=== PATIENT | male | born 1955 | race Caucasian/White ===

== ENCOUNTER 2019-11-06 10:43 | Emergency (ER) | payer SELFPAY ==
[2019-11-06 10:50] VITALS: BP 174/93; PULSE 61; RESP 16; TEMP 36.6; O2SAT 98
--- NOTE | 2019-11-06 11:43 | ED.NECK ---
HPI - Neck Pain/Injury General Chief Complaint: Neck Pain/Injury Stated Complaint: NECK PAIN, NUMBNESS IN ARM Time Seen by Provider: 11/06/19 11:11 Source: patient Mode of arrival: ambulatory Limitations: no limitations History of Present Illness HPI Narrative: This is a 64 year old male that presents to the ER for right sided tingling x 2 days. 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 Reports since then he has been having some neck pain. Reports on he was working on lights all day in the ceiling and had to look up the whole time. Reports this has caused some neck stiffness. Reports since he has been having some intermittent tingling in his right arm as well. Also reports this in the right leg. Denies vision changes, vomiting, numbness or weakness. Review of Systems Review of Systems: Narrative: CONSTITUTIONAL: Denies fever EYES: Denies visual changes GASTROINTESTINAL: Denies vomiting SKIN: Denies rash MUSCULOSKELETAL: Reports joint pain, and myalgia. NEUROLOGIC: Denies headache, numbness, or weakness. All systems reviewed & are unremarkable except as noted in HPI and below PMFSH Surgical History Surgical History (Updated 11/06/19 @ 11:49 by Chey Wilkerson PA-C) History of inguinal hernia repair Social History Social History (Updated 11/06/19 @ 11:49 by Chey Wilkerson PA-C) Smoking status: Never smoker Substance use: never Exam Narrative: Exam Narrative: GENERAL: Well-appearing, well-nourished, and in no acute distress. HEAD: Normocephalic, atraumatic. EYES: PERRLA and EOMI. ENT: Nares clear, no rhinorrhea or epistaxis. Mucous membranes moist. Oropharynx without tonsillar hypertrophy exudate or other lesions. Bilateral TMs pearly sen non-bulging NECK: Supple. No adenopathy or masses. No midline spinal tenderness CHEST: Clear to auscultation. No respiratory distress. No wheezes rales or rhonchi HEART: Regular rate and rhythm. No murmur heard. Normal peripheral pulses. EXTREMITIES: Normal range of motion. No edema. Strength equal in bilateral upper and lower extremities (5/5) SKIN: Warm, dry, no rash. NEURO: No focal deficits. Alert and oriented x3. Cranial nerves II through XII grossly intact. Normal gait PSYCH: Normal mood and affect Course Vital Signs Vital signs: Vital Signs Temperature 97.9 F 11/06/19 10:50 Pulse Rate 61 11/06/19 10:50 Respiratory Rate 16 11/06/19 10:50 Blood Pressure 174/93 H 11/06/19 10:50 Pulse Oximetry 98 11/06/19 10:50 Temperature 97.9 F 11/06/19 10:50 Pulse Rate 61 11/06/19 10:50 Respiratory Rate 16 11/06/19 10:50 Blood Pressure 174/93 H 11/06/19 10:50 Pulse Oximetry 98 11/06/19 10:50 MDM - Neck Pain/Injury MDM Narrative Medical decision making narrative: Patient presents the emergency department for neck pain. 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 Since he had had some neck stiffness. Was also reporting some tingling in his right arm. Reported some intermittent tingling in the right leg as well. Patient had no neurologic deficits on exam. I did speak with patient about wanting to get further labs and imaging to be able to further evaluate him. He refused as he does not have insurance and does not want to have to pay for a large bill. Patient will be signing out AMA. Made him aware of risks of doing so, such as permanent neurologic damage. Patient was told to return at any time for further evaluation. He was encouraged to follow up with his PCP Critical Care Time Critical Care Time Critical Care Time: No Discharge Plan Discharge Clinical Impression: Acute neck pain, Paresthesias Patient Disposition: Left Against Medical Advice Condition: Guarded Prognosis Instructions: Paresthesia (ED), Neck Pain (ED) Additional Instructions: Return to the emergency department at any time for further evaluation Follow-
== END 2019-11-06 12:25 | disposition left against medical advice (07) ==
PROVIDERS: Emergency Provider Emergency Medicine; PCP Family Medicine Adolescent Medicine
DX: R20.2 Paresthesia of skin (principal); M54.2 Cervicalgia
CPT/HCPCS: 99281

== ENCOUNTER 2020-07-03 13:19 | Inpatient (IN) | payer SELFPAY ==
[2020-07-03] VITALS (16 sets, daily range): BP systolic 62–126; BP diastolic 42–78; PULSE 63–102; RESP 14–23; TEMP 36.7; O2SAT 94–100; BMI 29.6
--- NOTE | ~2020-07-03 | US_ITS ---
EXAMINATION: US renal BI DATE: 07/04/2020 15:59 INDICATION: Acute kidney injury. TECHNIQUE: Multiple ultrasound grayscale images of the kidneys were obtained. COMPARISON: CT abdomen and pelvis 07/03/2020 FINDINGS: The right kidney measures 11.3 x 4.9 x 5.6 cm. The left kidney measures 11.2 x 5.3 x 6.2 cm. The kidn eys demonstrate normal parenchymal echogenicity. There is a poorly defined mass in the left kidney. T here is no hydronephrosis. The bladder is normal. The prostate is mildly enlarged. IMPRESSION: 1. Poorly defined mass in left kidney better seen by on yesterday's CT measuring 4.3 cm suspicious fo r renal cell carcinoma. Abdomen CT without and with contrast is recommended after improvement in acut e renal failure. I called this result to Shira Bonilla. 2. Normal kidney sizes. No hydronephrosis. Reviewed, dictated and finalized at location A. Y FARMWORKER IMPRESSION: 1. Poorly defined mass in left kidney better seen by on yesterday's CT measurin g 4.3 cm suspicious for renal cell carcinoma. Abdomen CT without and with contr ast is recommended after improvement in acute renal failure. I called this resu lt to Shira Bonilla. 2. Normal kidney sizes. No hydronephrosis.
--- NOTE | ~2020-07-03 | XR_ITS ---
EXAMINATION: XR chest 1V portable EXAM DATE: 07/03/2020 14:17 INDICATION: Syncope. TECHNIQUE: Portable AP frontal chest x-ray was obtained. There is no prior study for comparison. FINDINGS: The lungs are clear. There are no pleural effusions. The cardiomediastinal silhouette is within normal limits. There is no pneumothorax suspected. The bones and soft tissues are unremarkab le. IMPRESSION: No acute cardiopulmonary findings. Reviewed, dictated and finalized at location B. OR SALES ASSISTANT
--- NOTE | ~2020-07-03 | XR_ITS ---
EXAMINATION: XR chest port-a-cath/central EXAM DATE: 07/03/2020 15:20 INDICATION: Central line placement. TECHNIQUE: Portable AP frontal chest x-ray was obtained. There is no prior study for comparison. FINDINGS: There is a right IJ venous line, tip projecting over cavoatrial junction. No evidence of po stprocedure pneumothorax. No focal airspace disease or pleural effusion. Cardiomediastinal silhouette is normal. There are no osseous abnormalities identified. IMPRESSION: No acute cardiopulmonary findings. Reviewed, dictated and finalized at location B. RY WORKER
--- NOTE | ~2020-07-03 | CT_ITS ---
EXAMINATION: CT abdomen pelvis wo con DATE: 07/03/2020 15:56 INDICATION: Vomiting, diarrhea and hypotension TECHNIQUE: Computed tomography (CT) of the abdomen and pelvis was performed without intravenous contr ast. The dose-length product was 1072.27 mGy-cm. Automated exposure control and iterative reconstruct ion technique were employed. COMPARISON: None. FINDINGS: Bibasilar dependent atelectasis. Heart size is normal. Small hiatal hernia. There is fluid throughout the small bowel and colon without focal bowel wall abnormalities. Colonic diverticulosis w ithout evidence for diverticulitis. No free air or free fluid. No significant vascular abnormality. S mall fat-containing left inguinal hernia. No free air or free fluid. Gallbladder is present. There ar e low-density lesions in the left hepatic lobe, largest measuring 1.5 cm, compatible with a cyst. The other lesions are too small to characterize. The spleen, pancreas, adrenal glands and right kidney a re unremarkable. There is a 2 cm left renal cyst. There is a 2-3 mm nonobstructing right renal stone. There is moderate lumbar spondylosis. There is scoliosis. IMPRESSION: 1. Moderate fluid throughout the small bowel and colon without focal obstruction, suspicious for ente rocolitis. 2: Nonobstructing right nephrolithiasis. 3: Small hiatal hernia and left inguinal hernias. Reviewed, dictated and finalized at location A. DIRECTOR IMPRESSION: 1. Moderate fluid throughout the small bowel and colon without focal obstructio n, suspicious for enterocolitis. 2: Nonobstructing right nephrolithiasis. 3: Small hiatal hernia and left inguinal hernias.
--- NOTE | ~2020-07-03 | CT_ITS ---
EXAMINATION: CT brain wo con EXAM DATE: 07/04/2020 13:01 INDICATION: Fall, right frontal head injury. History of stroke. TECHNIQUE: Spiral CT of the head was performed without contrast. Axial, coronal and sagittal images were reviewed. The dose-length product (DLP) for this examination was 605.33 mGy-cm. The exposure w as tailored according to patient size, and iterative reconstruction (ASIR) was used as additional dos e reduction technique. There is no prior study for comparison. FINDINGS: There is no acute intraparenchymal hemorrhage. No evidence of intraparenchymal brain mass lesion. No evidence of acute infarction. There is no mass effect or midline shift. The ventricles are normal in size. There are no extra-axial collections. There are no acute calvarial fractures. T he orbits are unremarkable. Soft tissue is unremarkable. The visualized sinuses and mastoid air bri ls are well aerated. IMPRESSION: 1. No acute intracranial findings. Reviewed, dictated and finalized at location B. R RELATIONS REPRESENTATIVE
--- NOTE | ~2020-07-03 | XR_ITS ---
EXAMINATION: XR abdomen/kub 1V DATE: 07/05/2020 13:20 INDICATION: Right renal stone. TECHNIQUE: A supine view of the abdomen on 2 radiographs was obtained. COMPARISON: CT abdomen and pelvis 07/03/2020 FINDINGS: There are no dilated loops of bowel. There is a small volume of stool in the colon. There i s no visible urolithiasis. IMPRESSION: 1. No visible urolithiasis. Reviewed, dictated and finalized at location A. NING PERSONNEL SUPERVISOR IMPRESSION: 1. No visible urolithiasis.
--- NOTE | ~2020-07-03 | CT_ITS ---
EXAMINATION: CT abdomen pelvis wo/w con DATE: 07/05/2020 13:49 INDICATION: Left kidney mass. TECHNIQUE: Computed tomography (CT) of the abdomen and pelvis was performed without and with 100 mL O mnipaque 350 intravenous contrast. Automated exposure control and iterative reconstruction technique were employed. The dose-length product was 1634.51 mGy-cm. COMPARISON: CT abdomen and pelvis 07/03/2020 FINDINGS: The visualized portions of the lung bases demonstrate minimal atelectasis. No pleural effus ion. The heart size is normal. No pericardial effusion. There are cysts in the liver measuring up to 15 mm. The gallbladder, spleen, pancreas, and adrenal glands are normal. There is a 7 mm cyst in righ t kidney. There is a 1 mm stone in right kidney. There is a 5.0 x 3.3 cm enhancing mass in left kidne y. There are cysts in left kidney measuring up to 4 mm. There is a small area of focal left kidney vo lume loss in the upper pole. The prostate is mildly enlarged. There are bilateral inguinal hernias co ntaining fat. There is diverticulosis of the colon without evidence of diverticulitis. The appendix i s normal. There are no pathologically enlarged lymph nodes. There is no free intraperitoneal fluid. T here is lumbar levoscoliosis and severe spondylosis. IMPRESSION: 1. 5.0 cm enhancing mass in left kidney, consistent with renal cell carcinoma. Reviewed, dictated and finalized at location A. L FINISHER
--- NOTE | 2020-07-03 13:24 | ECG_ITS ---
Measurements Intervals [place] Rate: 75 P: 61 ID: [id number] QRS: 8 QRSD: 99 T: 32 QT: 391 QTc: 438 Interpretive Statements SINUS RHYTHM EARLY PRECORDIAL R/S TRANSITION INFERIOR INFARCT, AGE INDETERMINATE ABNORMAL ECG Electronically Signed On 07-03-2020 14:04:54 RESIDENTIAL MORTGAGE MANAGER by Martín Singh D.O.
--- NOTE | 2020-07-03 13:31 | PC.NURSE ---
BS 126
[2020-07-03] MEDS: SODIUM CHLORIDE 0.9% IV 2,000 ML 999 ML (13:32)
--- NOTE | 2020-07-03 13:32 | ED.NAVMDI ---
HPI - Nausea/Vomiting/Diarrhea General Chief complaint: Nausea/Vomiting/Diarrhea Stated complaint: weakness/hypotensive Time Seen by Provider: 07/03/20 13:21 History of Present Illness HPI Narrative: 65 yo male w/ h/o htn, CVA brought in by EMS from home for syncope. He reportedly had multiple episodes of watery diarrhea starting at about 0130 this morning. Since that time he has had multiple syncopal episodes. He was hypotensive per EMS and fluids were started. On arrival here he continues to be hypotensive. He had an additional syncopal episode when the head of the bed was raised. No dark or bloody stools. No CP, SOB, palpitations, fever. Related Data Home Medications Medication Instructions Recorded Confirmed aspirin 325 mg PO DAILY 07/03/20 07/03/20 atorvastatin 40 mg PO DAILY 07/03/20 07/03/20 hydrochlorothiazide 25 mg PO DAILY 07/03/20 07/03/20 lisinopril 20 mg PO BID 07/03/20 07/03/20 saw palmetto 450 mg PO BID 07/03/20 07/03/20 Allergies Allergy/AdvReac Type Severity Reaction Status Date / Time No Known Allergies Allergy Verified 07/03/20 13:31 Review of Systems Review of Systems: All systems reviewed & are unremarkable except as noted in HPI and below Constitutional: Constitutional: Reports fatigue, Denies fever(s) and Reports weakness ENT: Denies sore throat Cardiovascular: Cardiovascular: Denies chest pain Respiratory: Respiratory: Denies dyspnea Gastrointestinal: Gastrointestinal: Denies abdominal pain, Reports diarrhea, Reports nausea and Reports vomiting Genitourinary: Genitourinary: Denies hematuria and Denies dysuria Musculoskeletal: Musculoskeletal: Denies back pain Neurologic: Denies confusion and Reports syncope [facility] Past Medical History Medical History CVA (cerebral vascular accident) HTN (hypertension) Surgical History Surgical History History of inguinal hernia repair Social History Social History Smoking status: Never smoker Second hand tobacco smoke exposure: No Substance use: never Substance use type: does not use Gender identity (if verbalized by the patient): Male Spiritual care concerns: No Exam Const: General: no acute distress, alert and ill appearing Orientation/consciousness: patient oriented x3 HENMT: Mouth: Yes dry mucous membranes Eyes: Pupils: Equal, round and reactive pupils present EOM: EOMs intact bilaterally Neck: Neck: normal visual inspection Resp: Effort & Inspection: normal respiratory effort Auscultation: clear to auscultation bilaterally Cardio: Rate: regular rate Rhythm: regular rhythm GI: GI Palp: Yes Soft to palpation and No Tenderness to palpation present (GI) Skin: General skin exam: normal color and no pallor Neuro: General: patient oriented x3, moves all extremities, no focal motor deficits and CN's II-XI intact bilaterally Speech: normal speech Extrem: General: normal to inspection and no edema Course Vital Signs Vital signs: Vital Signs Temperature 36.7 C 07/03/20 13:25 Pulse Rate 66 07/03/20 13:25 Respiratory Rate 15 07/03/20 13:25 Blood Pressure 62/42 L 07/03/20 13:25 Pulse Oximetry 99 07/03/20 13:25 Temperature 36.7 C 07/03/20 13:25 Pulse Rate 99 07/03/20 18:13 Respiratory Rate 20 07/03/20 18:13 Blood Pressure 101/65 07/03/20 18:13 Pulse Oximetry 96 07/03/20 18:13 Procedures Central Line Placement Right IJ: Central Line Date: 07/03/20 Central Line Time: 15:06 Discussed w/ the patient/family/POA,the placement of a central venous catheter, including its clinical necessity/indication & associated potential risks, benifits and alternatives.: Yes The patient/family/POA understand(s) and acknowledge(s) the need to proceed with central venous catheter insertion as an important
[2020-07-03 13:35] LABS: Glucose Point of Care 126 (65-105)
--- NOTE | 2020-07-03 13:45 | PC.NURSE ---
3 L INFUSING AT THIS TIME, EDP AT BEDSIDE GAVE VORB. L/R INFUSED, 2 N/S INFUSING AT BOLUS RATE.
[2020-07-03 13:46] LABS: Basophils Absolute Auto 0.1 K/mm3 (0.0-0.1); Basophils Percent Auto 0.4 % (0.2-1.2); Eosinophils Percent Auto 0.1 % (0-4.4); Hemoglobin 14.6 g/dL (14.0-18.0); Immature Granulocyte Absolute 0.07 K/mm3 (0.00-0.031); Immature Granulocyte Percent A 0.5 % (0-0.5); Lymphocytes Percent Auto 7.7 % (18.3-44.2); Mean Corpuscular HGB Conc 33.2 g/dl (32-36); Mean Corpuscular Hemoglobin 30.5 pg (26-34); Mean Corpuscular Volume 91.9 fl (80-100); Monocytes Absolute Auto 0.8 K/mm3 (0.1-0.6); Monocytes Percent Auto 6.1 % (2.6-8.5); Neutrophils Absolute Auto 11.1 K/mm3 (1.3-6.7); Neutrophils Percent Auto 85.2 % (45.5-73.1); Platelet Count Result 344 k/mm3 (150-375); Red Blood Count 4.79 M/mm3 (4.6-6.20); Red Cell Distribution Width 12.5 % (11.5-14.5); White Blood Count 13.1 K/mm3 (4.5-10.0)
--- NOTE | 2020-07-03 13:55 | PC.NURSE ---
PT UNABLE TO PROVIDE U/A AT THIS TIME, DECLINED STRAIGHT CATH. FLUIDS INFUSING, GIVEN URINAL.
[2020-07-03 13:56] LABS: Lactic Acid Reflex 2.8 mmol/L (0.7-2.1)
[2020-07-03 13:57] LABS: Prothrombin Time 13.8 Seconds (11.1-14.7)
[2020-07-03 13:57] LABS: Alanine Aminotransferase 49 U/L (4-50); Albumin Level 3.6 g/dL (3.5-5.1); Alkaline Phosphatase 64 U/L (38-126); Anion Gap 10 mmol/L (8-16); Aspartate Amino Transferase 27 U/L (17-59); Bilirubin,Total 0.5 mg/dL (0.2-1.3); Blood Urea Nitrogen 33 mg/dL (9-20); Calcium 9.3 mg/dL (8.4-10.2); Carbon Dioxide 24 mmol/L (22-30); Chloride 104 mmol/L (98-107); Estimated CRCL calculation 24 ml/min; Estimated Glomerular Filt Rate 20; Glucose 151 mg/dL (75-110); Lipase 39 U/L (23-300); Potassium 3.9 mmol/L (3.4-5.0); Sodium 138 mmol/L (137-145)
[2020-07-03 13:59] LABS: Partial Thromboplastin Time 26.3 SECONDS (22.3-36.8)
[2020-07-03 14:09] LABS: Troponin I < 0.012 ng/mL (0.000-0.034)
--- NOTE | 2020-07-03 14:57 | PC.NURSE ---
EDP DR GATICA AT BEDSIDE TO PLACE CENTRAL LINE. PT ON TELE MONITOR.
[2020-07-03] MEDS: NOREPINEPHRINE 8 MG/D5W 250 ML 8 MG/250 ML BAG 9.38 MG IV CONT (15:14)
[2020-07-03 15:17] LABS: Add Urine Microscopic? YES; Appearance Urine Turbid (Clear); Bacteria Urine Trace /hpf; Bilirubin Urine Negative (Negative); Blood Urine 1+ (Negative); Color Urine Amber (Yellow); Glucose Urine UA Negative (Negative); Ketones Urine Trace mg/dL (Negative); Leukocyte Esterase Ur Negative LEU/UL (Negative); Mucus Urine Rare /lpf; Nitrate Urine Negative (Negative); Protein Urine 3+ mg/dL (Negative); RBC Urine 0-2 /hpf (0-2); Specific Grav Ur 1.022 (1.001-1.035); Squamous Epithelial Cell Urine Rare /hpf (Few); Urobilinogen Urine Negative mg/dL (<2.0); WBC Urine 0-3 /hpf
[2020-07-03] MEDS: SODIUM CHLORIDE 0.9% IV 1,000 ML 999 ML IV CONT (15:20)
--- NOTE | 2020-07-03 15:28 | PC.NURSE ---
Per EDP Dr Metzger, titrate Levophed to 15MCG.
[2020-07-03] MEDS: SODIUM CHLORIDE 0.9% IV 1,000 ML 999 ML (15:29)
--- NOTE | 2020-07-03 15:47 | PC.NURSE ---
PT TO CT SCAN VIA STRETCHER
[2020-07-03] MEDS: VANCOMYCIN ORAL 125 MG/2.5 ML SYRUP PO ×2 (16:25→23:43)
[2020-07-03 16:43] LABS: Reflex Lactic Acid Yes or No Add Lactic
[2020-07-03 17:29] LABS: Lactic Acid 1.1 mmol/L (0.7-2.1)
--- NOTE | 2020-07-03 18:22 | ADMGEN ---
This patient, Christ Bolton, was admitted to Intensive Care Unit-2. Patient/family oriented to hospital policies and general routines including ID bracelet, bed and alarms, visiting hours, pain management, procedures, bathroom and other care routines, personal items, smoking policy, room service/diet, and visiting hours. Information on how to activate the Rapid Response Team has been discussed. Patient/Family are encouraged to report perceived risks to care and to ask questions if they do not understand what they are told or what they should do.
--- NOTE | 2020-07-03 20:01 | PM.IMHP ---
H&P: HPI History of Present Illness Date/Time: 07/03/20 20:01 Chief Complaint: Syncopal episode with hypotension Narrative: Christ Bolton is a 65 year old male who has a past medical history of having a CVA, hypertension and hyperlipidemia. The patient has some residual weakness to his right hand and difficulty with balance at times. Patient has regained strength to his right leg and his speech as well since his stroke this past October. The patient has been on hydrochlorothiazide and lisinopril for his blood pressure. The patient woke up with some abdominal cramping at 1:30 a.m. this morning when he started having diarrhea. He denies being on any recent antibiotics. He has not had any code exposure. He has not had any fever chills. He has not been around any sick contacts. The patient stated that he feels like he has had several syncopal episodes today. The patient became hypotensive but had no additional syncopal episodes when the head of bed was raise. No chest pain, shortness of breath or palpitations. White count is 13.1. His creatinine was noted to be 3.2. The patient did take his home medications although he was having multiple watery stools today. His lactic initially was 2.8 and then it went down to 1.1. Glucose is 126. Chest x-ray was negative.CT was read as moderate fluid throughout the small bowel and colon without focal obstruction, suspicious for enterocolitis. Nonobstructing right nephrolithiasis. Small hiatal hernia and left inguinal hernias. Patient was given the 30 mils per kg IV boluses in the emergency room and the patient continued to have low blood pressures. Was 62/42. A central line was placed and the patient was placed on on Levophed. The patient did have a watery diarrhea stool in the emergency room. The patient stated he has not had 1 since then. The patient was started on Zosyn and oral vancomycin. The patient is complaining of feeling hungry and is requesting a sandwich at this time. Patient is being admitted to inpatient ICU on the date of service of 07/03/2020. Review of Systems Review of Systems: All systems reviewed & are unremarkable except as noted in HPI and below Constitutional: Constitutional: Reports as per HPI and Reports no additional constitutional complaints Eyes: Eyes: Reports as per HPI and Reports no additional eye complaints ENT: Reports system reviewed and no additional complaints, except as documented and Reports Normal hearing present Cardiovascular: Cardiovascular: Reports no additional cardiovascular complaints Respiratory: Respiratory: Reports no additional respiratory complaints and Reports no additional respiratory complaints Gastrointestinal: Gastrointestinal: Reports as per HPI and Reports no additional gastrointestinal complaints Musculoskeletal: Musculoskeletal: Reports no additional musculoskeletal complaints Integumentary/Breasts: Skin/Breast: Reports system reviewed and no additional complaints, except as docu and Reports as per HPI Neurologic: Reports system reviewed and no additional complaints, except as documented, Reports as per HPI and Reports Normal hearing present Psychiatric: Psychiatric: Reports no additional psychiatric complaints and Reports as per HPI Endocrine: Endocrine: Reports no additional endocrine complaints Hematologic/Lymphatic: Hematologic/Lymphatic: Reports no additional hematologic/lymphatic complaints Allergic/Immunologic: Allergic/Immunologic: Reports no additional allergic/immunologic complaints [facility] Past Medical History Medical History (Updated 07/03/20 @ 20:34 by Padmini Richards NP) CVA (cerebral vascular accident) Right side residual with ambulatory difficulty HTN (hypertension) Hyperlipidemia Surgical History Surgical History (Updated 07/03/20 @ 20:13 by Padmini Richards NP) History of bunionectomy History of inguinal hernia repair Social History Social History (Updated 07/03/20 @ 20:21 by Padmini Richards NP)
[2020-07-03] MEDS: SODIUM CHLORIDE 0.9% IV 1,000 ML 100 ML (20:12)
[2020-07-03] MEDS: SODIUM CHLORIDE 0.9% IV 250 ML 100 ML IV CONT (20:25)
[2020-07-03 21:09] LABS: Anion Gap 8 mmol/L (8-16); Blood Urea Nitrogen 36 mg/dL (9-20); Calcium 8.3 mg/dL (8.4-10.2); Carbon Dioxide 21 mmol/L (22-30); Chloride 106 mmol/L (98-107); Estimated CRCL calculation 24 ml/min; Estimated Glomerular Filt Rate 20; Glucose 188 mg/dL (75-110); Potassium 3.9 mmol/L (3.4-5.0); Sodium 135 mmol/L (137-145)
[2020-07-03] MEDS: CALCIUM CARBONATE (TUMS) 500 MG (200 MG ELEMENTAL) PO (22:18)
[2020-07-04] VITALS (22 sets, daily range): BP systolic 104–140; BP diastolic 57–87; PULSE 60–663; RESP 14–20; TEMP 36.1–36.9; O2SAT 94–99
[2020-07-04] MEDS: NOREPINEPHRINE 8 MG/D5W 250 ML 8 MG/250 ML BAG 9.38 MG IV CONT (02:40)
[2020-07-04 03:51] LABS: Basophils Percent Auto 0.4 % (0.2-1.2); Eosinophils Percent Auto 0.4 % (0-4.4); Hematocrit 38.2 % (42.0-52.0); Immature Granulocyte Absolute 0.05 K/mm3 (0.00-0.031); Immature Granulocyte Percent A 0.5 % (0-0.5); Lymphocytes Absolute Auto 1.46 K/mm3 (0.9-3.2); Lymphocytes Percent Auto 14.6 % (18.3-44.2); Mean Corpuscular Hemoglobin 30.7 pg (26-34); Mean Corpuscular Volume 90.3 fl (80-100); Mean Platelet Volume 9.3 fl (7.4-10.4); Monocytes Absolute Auto 0.9 K/mm3 (0.1-0.6); Neutrophils Absolute Auto 7.5 K/mm3 (1.3-6.7); Neutrophils Percent Auto 75.1 % (45.5-73.1); Platelet Count Result 262 k/mm3 (150-375); Red Blood Count 4.23 M/mm3 (4.6-6.20); Red Cell Distribution Width 12.5 % (11.5-14.5)
[2020-07-04 04:04] LABS: IFOB Positive Control Positive; Immunochemical Fecal Occult Bl Negative (N)
[2020-07-04 04:11] LABS: Alanine Aminotransferase 37 U/L (4-50); Albumin Level 2.9 g/dL (3.5-5.1); Alkaline Phosphatase 54 U/L (38-126); Anion Gap 6 mmol/L (8-16); Aspartate Amino Transferase 24 U/L (17-59); Bilirubin,Total 0.6 mg/dL (0.2-1.3); Blood Urea Nitrogen 35 mg/dL (9-20); CRP 4.4 mg/dL (<1.0); Calcium 8.2 mg/dL (8.4-10.2); Carbon Dioxide 23 mmol/L (22-30); Chloride 108 mmol/L (98-107); Estimated CRCL calculation 28 ml/min; Estimated Glomerular Filt Rate 24; Glucose 125 mg/dL (75-110); Magnesium 1.7 mg/dL (1.6-2.3); Phosphorus 4.6 mg/dL (2.5-4.5); Potassium 3.4 mmol/L (3.4-5.0); Sodium 137 mmol/L (137-145)
[2020-07-04 04:45] LABS: Thyroid Stimulating Hormone Reflex 0.555 uIU/mL (0.465-4.68)
[2020-07-04] MEDS: VANCOMYCIN ORAL 125 MG/2.5 ML SYRUP PO ×4 (06:12→23:59)
[2020-07-04] MEDS: MAGNESIUM SULF 2 GM/WATER 50ML 2 GM/50 ML BAG IVPB (07:42)
[2020-07-04] MEDS: CALCIUM CARBONATE (TUMS) 500 MG (200 MG ELEMENTAL) PO (07:44)
[2020-07-04] MEDS: FAMOTIDINE 20 MG/2 ML VIAL IV PUSH ×2 (08:04→20:48)
[2020-07-04] MEDS: ATORVASTATIN 40 MG TABLET PO (08:04)
--- NOTE | 2020-07-04 09:03 | WPDCNINT ---
Assessment and Plan Assessment and plan (1) Septic shock: Code(s): A41.9 - Sepsis, unspecified organism; R65.21 - Severe sepsis with septic shock Status: Acute Assessment and Plan: Shock likely related to hypovolemia, sepsis/infection. Patient had severe diarrhea, nausea, vomiting, dehydration and above all any did take his lisinopril and hydrochlorothiazide on the day of admission -likely source abdomen -enterocolitis a seen on CT scan of the abdomen and pelvis -patient received his adequate amount of IV fluids despite which he was hypotensive, central line was inserted and patient started on Levophed -Levophed is currently off -continue Zosyn and vancomycin, will deescalate once cultures are resulted -stool cultures have been obtained and pending (2) Enterocolitis: Code(s): K52.9 - Noninfective gastroenteritis and colitis, unspecified Status: Acute Assessment and Plan: CT scan of the abdomen and pelvis showed enterocolitis -patient presented with severe diarrhea, dehydration, hypovolemia -continue antibiotics (3) Acute kidney injury: Code(s): N17.9 - Acute kidney failure, unspecified Status: Acute Assessment and Plan: Acute kidney injury likely related to hypovolemia, sepsis, infection, shock, lisinopril and diuretic -patient adequately fluid-resuscitated -urine output has been adequate -creatinine trending down -continue monitor renal function, electrolytes -will hold IV fluids Additional Plan Discussed with patient updated with his condition and plan of care. Code status: Full code Critical care time spent: 39 minutes Due to a high probability of clinically significant, life threatening deterioration, the patient required my highest level of preparedness to intervene emergently and I personally spent this critical care time directly and personally managing the patient. This critical care time included obtaining a history; examining the patient; pulse oximetry; ordering and review of studies; arranging urgent treatment with development of a management plan; evaluation of patient's response to treatment; frequent reassessment; and discussions with other providers. It was exclusive of separately billable procedures and treating other patients and teaching time. Please see Assessment and Plan section and the rest of the note for further information on patient assessment and treatment Vamp Presser Consult Note Consult date: 07/04/20 Time Seen: 06:51 Reason for consult: Hypovolemia, shock, diarrhea, enterocolitis HPI: Christ Bolton is a 65 year old male with past medical history of CVA, essential hypertension hyperlipidemia presented the ED diarrhea, vomiting with abdominal cramping that began on the morning of admission. Patient had having perfuse and multiple episodes of diarrhea. States he had some breakfast on 07/02/2020 and the very next morning he developed cramping diarrhea and vomiting. Patient also took his hydrochlorothiazide and lisinopril felt dizzy and lightheaded had syncopal episode on the day of admission. In the ER patient was found to be hypotensive, in renal failure. Patient was given 30 mL/kg of IV fluid bolus despite which she was hypotensive, central line was inserted and patient started on Levophed and transferred to the ICU for further management. CT scan of the abdomen pelvis showed moderate fluid throughout the small bowel and colon without fecal obstruction, suspicious for enterocolitis. Lactic acid was 2.8 on admission, 1.1 after IV fluids. Patient seen and examined the ICU this morning, remains awake, alert sitting up on the chair, has been off Levophed. Denies any nausea, vomiting, diarrhea. He had a small movement this morning. Patient is afebrile, urine output has been adequate. Creatinine trending down, leukocytosis has normalized. Patient states that he has had a history of CVA with some right-sided weakness difficulty with balance. He uses a cane at
--- NOTE | 2020-07-04 15:44 | PM.IMPN ---
Progress Note: A&P Assessment and Plan (1) Acute kidney injury: Code(s): N17.9 - Acute kidney failure, unspecified Status: Acute Assessment and Plan: Likely pr renal azotemia Will obtain renal US Daily BMP Avoid nephrotoxins Patient on HCTZ hence urine lytes of less value, currently holding. Patient also on Lisinopril at home currently holding (2) HTN (hypertension): Code(s): I10 - Essential (primary) hypertension Status: Chronic Assessment and Plan: Currently off vasopressor due to hypotension. Holding Lisinopril and HCTZ. (3) Enterocolitis: Code(s): K52.9 - Noninfective gastroenteritis and colitis, unspecified Status: Acute (4) Septic shock: Code(s): A41.9 - Sepsis, unspecified organism; R65.21 - Severe sepsis with septic shock Status: Acute Assessment and Plan: Likely component of hypovolemia due to profuse diarrhea. Received broad spectrum antibiotics No bandemia/Left shift Currently on po Vanc Continue to monitor (5) Enteritis: Code(s): K52.9 - Noninfective gastroenteritis and colitis, unspecified Status: Acute Assessment and Plan: Supportive care Continue to monitor Awaiting stool studies Subjective Date/time seen: 07/04/20 15:44 States that feels better today. No new issues overnight. Review of Systems Review of Systems: Narrative: Denies any discomfort at this time. Constitutional: Comments: no fevers, no chills, no rigors. Eyes: Comments: no vision changes. ENT: Comments: no nasal congestion, no throat pain, no ear ache. Cardiovascular: Comments: no chest pain. Respiratory: Comments: no sob, no cough, no sputum production. Gastrointestinal: Comments: Diarrhea for several days now. Musculoskeletal: Comments: no muscle aches, no joint pain. Integumentary/Breasts: Comments: no rashes. Neurologic: Comments: no sensory motor deficit. Exam Narrative: Exam Narrative: Lying in bed Const: General: comfortable, no acute distress, alert, awake, Physically active and tired appearing Nutritional Appearance: average body habitus Orientation/consciousness: patient oriented x3 Limitations: no limitations HENMT: Head: normocephalic Face and sinus: normal facial exam Eyes: General: appearance normal, both eyes and all related structures Pupils: Equal, round and reactive pupils present EOM: EOMs intact bilaterally Neck: Neck: no lymphadenopathy, supple and no JVD Resp: Effort & Inspection: able to speak in complete sentences Auscultation: clear to auscultation bilaterally GI: GI Palp: Yes Soft to palpation and Yes No hepatosplenomegaly present Skin: Rashes: no rashes Wounds: no wounds Neuro: General: patient oriented x3 and CN's II-XI intact bilaterally Cranial nerves: Yes CN's II-XII intact bilaterally and Yes Equal, round and reactive pupils present Cognition (Neuro): normal cognition Motor exam (neuro): 5/5 motor strength present throughout Extrem: General: no pedal edema Objective Data Vital Signs Vital Signs: Vital Signs - 24 hr 07/03/20 16:13 07/03/20 17:16 07/03/20 18:00 Temperature Pulse Rate 85 102 H 96 Respiratory Rate 14 22 H 16 Blood Pressure 117/78 97/58 L 104/68 Pulse Oximetry 98 96 97 07/03/20 18:13 07/03/20 20:00 07/03/20 22:00 Temperature Pulse Rate 99 87 86 Respiratory Rate 20 19 23 H Blood Pressure 101/65 106/60 121/77 Pulse Oximetry 96 96 98 07/03/20 23:42 07/04/20 00:00 07/04/20 00:08 Temperature Pulse Rate 86 85 83 Respiratory Rate 18 Blood Pressure 126/74 120/80 131/77 Pulse Oximetry 96 07/04/20 00:30 07/04/20 01:39 07/04/20 02:00 Temperature 98.3 F Pulse Rate 112 H Respiratory Rate 17 Blood Pressure 128/79 104/77 Pulse Oximetry 94 07/04/20 02:35 07/04/20 02:40 07/04/20 03:06 Temperature Pulse Rate 111 H Respiratory Rate Blood Pressure 116/85 116/85 140/87 Pulse Oximetry 07/04/20 03:34 07/04
[2020-07-04 16:19] LABS: Creatine Kinase 299 U/L (55-170)
--- NOTE | 2020-07-04 19:05 | PC.NURSE ---
pt transferred to room 246 via bed, placed on telemetry per MD orders, oriented to new room by night staff, reviewed plan of care, pt resting comfortably
--- NOTE | 2020-07-04 19:10 | PC.NURSE ---
This patient, Christ Bolton, was transferred to room 246 on 07/04/20 at 1910. Personal belongings sent with patient. Report given to RN. Appropriate documentation sent with patient.
[2020-07-05] VITALS (7 sets, daily range): BP systolic 108–137; BP diastolic 68–72; PULSE 58–84; RESP 18–20; TEMP 36.3–36.7; O2SAT 96–98
[2020-07-05] MEDS: VANCOMYCIN ORAL 125 MG/2.5 ML SYRUP PO ×2 (05:26→11:30)
[2020-07-05 05:34] LABS: Basophils Percent Auto 0.5 % (0.2-1.2); Eosinophils Absolute Auto 0.2 K/mm3 (0-0.3); Eosinophils Percent Auto 2.6 % (0-4.4); Hematocrit 35.3 % (42.0-52.0); Hemoglobin 11.7 g/dL (14.0-18.0); Immature Granulocyte Absolute 0.02 K/mm3 (0.00-0.031); Immature Granulocyte Percent A 0.3 % (0-0.5); Lymphocytes Absolute Auto 1.78 K/mm3 (0.9-3.2); Mean Corpuscular HGB Conc 33.1 g/dl (32-36); Mean Corpuscular Hemoglobin 30.5 pg (26-34); Mean Corpuscular Volume 92.2 fl (80-100); Mean Platelet Volume 9.5 fl (7.4-10.4); Monocytes Absolute Auto 0.6 K/mm3 (0.1-0.6); Monocytes Percent Auto 8.3 % (2.6-8.5); Neutrophils Absolute Auto 5.1 K/mm3 (1.3-6.7); Neutrophils Percent Auto 65.3 % (45.5-73.1); Platelet Count Result 231 k/mm3 (150-375); Red Blood Count 3.83 M/mm3 (4.6-6.20); Red Cell Distribution Width 12.6 % (11.5-14.5); White Blood Count 7.7 K/mm3 (4.5-10.0)
[2020-07-05 05:45] LABS: Anion Gap 4 mmol/L (8-16); Blood Urea Nitrogen 27 mg/dL (9-20); Calcium 8.2 mg/dL (8.4-10.2); Carbon Dioxide 26 mmol/L (22-30); Chloride 111 mmol/L (98-107); Estimated CRCL calculation 41 ml/min; Estimated Glomerular Filt Rate 38; Glucose 100 mg/dL (75-110); Magnesium 2.4 mg/dL (1.6-2.3); Phosphorus 3.1 mg/dL (2.5-4.5); Sodium 141 mmol/L (137-145)
[2020-07-05] MEDS: CENTRAL LINE FLUSH 20 ML IV PUSH (06:03)
[2020-07-05] MEDS: CENTRAL LINE FLUSH 10 ML IV PUSH (06:03)
[2020-07-05] MEDS: ASPIRIN 81 MG CHEWABLE TABLET 162 MG PO (08:29)
[2020-07-05] MEDS: ATORVASTATIN 40 MG TABLET PO (08:29)
[2020-07-05] MEDS: FAMOTIDINE 20 MG/2 ML VIAL IV PUSH (08:29)
[2020-07-05] MEDS: NEOMYCIN/POLYMYXIN/BACITRACIN OINTMENT PACKET 1 PACKET (11:31)
[2020-07-05] MEDS: LORATADINE 5 MG TABLET PO (15:04)
--- NOTE | 2020-07-05 15:36 | WPDURCON ---
Assessment and Plan Assessment and plan (1) Renal mass: Code(s): N28.89 - Other specified disorders of kidney and ureter Status: Acute Assessment and Plan: Ok to discharge at anytime. Will follow up with Dr. Joseph for further evaluation and management. No further evaluation at this time. (2) Right kidney stone: Code(s): N20.0 - Calculus of kidney Status: Acute Assessment and Plan: Not visible on KUB. Will watch yearly. No surgical management. Urology Consult Note HPI Date Seen: 07/05/20 Requesting Physician: Lino Kent MD Primary Care Provider: Haresh Toney MD Consult Narrative Narrative: Christ Bolton is a 65 year old male who presented to the ER on 07/03/2020 with diarrhea, and multiple syncopal episodes extending into the ER as well as hypotension. He came via EMS called by his and has a history of CVA. His WBC is 7.7, creatinine is 1.80 down from 3.10 on admission, his urine culture was negative. CT scan of abdomen and pelvis shows a non obstructive stone measuring 2-3mm and a 2cm left renal cyst which appears to also have a solid component and is potentially part of a mass. A JASON was then done to further identify the mass and states it is poorly identified but likely Renal Cell Carcinoma. A CT Urogram was then ordered and it identifies the mass as a 5.0 cm enhancing mass in left kidney, consistent with renal cell carcinoma. The patient denies flank pain, dysuria, hematuria, or any previous urologic history. Review of Systems Cardiovascular: Cardiovascular: Denies chest pain Respiratory: Respiratory: Reports no additional respiratory complaints Gastrointestinal: Gastrointestinal: Denies abdominal pain, Denies nausea and Denies vomiting Genitourinary: Genitourinary: Denies hematuria, Denies dysuria, Denies flank pain and Denies urinary urgency [facility] Past Medical History Medical History CVA (cerebral vascular accident) Right side residual with ambulatory difficulty HTN (hypertension) Hyperlipidemia Surgical History Surgical History History of bunionectomy History of inguinal hernia repair Social History Social History Social History: He lives with his who is the durable power molder trimmer for healthcare. 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 No alcohol use. Patient stated that he smoked as a teenager till he was 22. The patient does not use any marijuana or illicit drugs. He has 2 children. The patient is a full code. Smoking status: Never smoker Second hand tobacco smoke exposure: No Substance use: never Substance use type: does not use Gender identity (if verbalized by the patient): Male Spiritual care concerns: No Meds Home Medications and Allergies Home Medications Medication Instructions Recorded Confirmed Type aspirin 325 mg PO DAILY 07/03/20 07/03/20 History atorvastatin 40 mg PO DAILY 07/03/20 07/03/20 History hydrochlorothiazide 25 mg PO DAILY 07/03/20 07/03/20 History lisinopril 20 mg PO BID 07/03/20 07/03/20 History saw palmetto 450 mg PO BID 07/03/20 07/03/20 History Allergies Allergy/AdvReac Type Severity Reaction Status Date / Time No Known Allergies Allergy Verified 07/03/20 13:31 Vital Signs Vital Signs - 24 hr 07/04/20 17:45 07/04/20 20:00 07/04/20 22:00 Temperature 98.4 F 97.4 F L 97 F L Pulse Rate 75 663 H 64 Respiratory Rate 20 20 20 Blood Pressure 109/72 108/65 108/65 Pulse Oximetry 97 99 99 07/05/20 00:00 07/05/20 02:00 07/05/20 04:00 Temperature 97.3 F L 97.5 F L 97.7 F Pulse Rate 62 77 64 Respiratory Rate 18 20 18 Blood Pressure 116/72 108/68 131/68 Pulse Oximetry 96 96 97 07/05/20 06:00 07/05/20 08:00
--- NOTE | 2020-07-05 16:36 | PM.DS ---
DS: Admitting Diagnosis Admitting Diagnosis Admitting Diagnosis: 1) Septic shock: (2) Acute kidney injury: . (3) Enterocolitis: (4) HTN (hypertension): (5) Hyperlipidemia: DS: Summary Hospital Course Reason for hospitalization: Fall Hospital Course: Christ Bolton is a 65 year old male who has a past medical history of having a CVA, hypertension and hyperlipidemia. The patient has some residual weakness to his right hand and difficulty with balance at times. Patient has regained strength to his right leg and his speech as well since his stroke this past October. The patient has been on hydrochlorothiazide and lisinopril for his blood pressure. The patient woke up with some abdominal cramping at 1:30 a.m. this morning when he started having diarrhea. He denies being on any recent antibiotics. He has not had any code exposure. He has not had any fever chills. He has not been around any sick contacts. The patient stated that he feels like he has had several syncopal episodes today. The patient became hypotensive but had no additional syncopal episodes when the head of bed was raise. No chest pain, shortness of breath or palpitations. White count is 13.1. His creatinine was noted to be 3.2. The patient did take his home medications although he was having multiple watery stools today. His lactic initially was 2.8 and then it went down to 1.1. Glucose is 126. Chest x-ray was negative.CT was read as moderate fluid throughout the small bowel and colon without focal obstruction, suspicious for enterocolitis. Nonobstructing right nephrolithiasis. Small hiatal hernia and left inguinal hernias. Patient was given the 30 mils per kg IV boluses in the emergency room and the patient continued to have low blood pressures. Was 62/42. A central line was placed and the patient was placed on on Levophed. Patient was able to wean off of vasopressors and responded well to fluid resuscitation. A CT of abd/pel showed mass in the kidney suspicious for RCC which was confirmed with further imaging a Nephrology consult was obtained and patient was going to follow up in the outpatient setting for further work up treatment and evaluation. EXAMINATION: CT abdomen pelvis wo/w con DATE: 07/05/2020 13:49 INDICATION: Left kidney mass. TECHNIQUE: Computed tomography (CT) of the abdomen and pelvis was performed without and with 100 mL Omnipaque 350 intravenous contrast. Automated exposure control and iterative reconstruction technique were employed. The dose-length product was 1634.51 mGy-cm. COMPARISON: CT abdomen and pelvis 07/03/2020 FINDINGS: The visualized portions of the lung bases demonstrate minimal atelectasis. No pleural effusion. The heart size is normal. No pericardial effusion. There are cysts in the liver measuring up to 15 mm. The gallbladder, spleen, pancreas, and adrenal glands are normal. There is a 7 mm cyst in right kidney. There is a 1 mm stone in right kidney. There is a 5.0 x 3.3 cm enhancing mass in left kidney. There are cysts in left kidney measuring up to 4 mm. There is a small area of focal left kidney volume loss in the upper pole. The prostate is mildly enlarged. There are bilateral inguinal hernias containing fat. There is diverticulosis of the colon without evidence of diverticulitis. The appendix is normal. There are no pathologically enlarged lymph nodes. There is no free intraperitoneal fluid. There is lumbar levoscoliosis and severe spondylosis. IMPRESSION: 1. 5.0 cm enhancing mass in left kidney, consistent with renal cell carcinoma. Time Spent with Patient Time attestation: Total time spent providing and/or coordinating discharge services: Exam Const: General: healthy appearing, comfortable, no acute distress, well developed, alert and awake Nutritional Appearance: average body habitus Orientation/consciousness: patient oriented x3 HENMT: Head: normal to inspection and atraumatic Ears: hearing grossly normal b
--- NOTE | 2020-07-05 16:39 | WPDGICN ---
Assessment and Plan Assessment and plan (1) Diarrhea: Code(s): R19.7 - Diarrhea, unspecified Status: Acute Assessment and Plan: with severe dehydration and shock, improved after hydration and briefly was on pressors now he is doing great with normal bp, holding his meds he is agreeable to get colonoscopy as outpatient, will arrange (never had one)- will get also random colon bx (2) Shock: Code(s): R57.9 - Shock, unspecified Status: Acute Assessment and Plan: resolved after medical management cv line removed (3) Acute kidney injury: Code(s): N17.9 - Acute kidney failure, unspecified Status: Acute Assessment and Plan: improved after hydration (4) Enterocolitis: Code(s): K52.9 - Noninfective gastroenteritis and colitis, unspecified Status: Acute (5) Renal mass: Code(s): N28.89 - Other specified disorders of kidney and ureter Status: Acute Assessment and Plan: urology on board, follow up as outpatient possible RCC GI Consult Note Consult date/time: 07/05/20 16:39 Reason for consult: diarrhea HPI: Christ Bolton is a 65 year old male with history of CVA, hypertension and hyperlipidemia. He was started on hydrochlorothiazide and lisinopril for his blood pressure several months ago after his CVA, he says that had more frequent bowel movements since then. He came to the hospital after new onset of sever pain in abdomen with cramping, then started profussed diarrhea. He denies use of antibiotics, sick exposure, fever or chills. He was lightheaded and had syncopal episodes after getting up. White count 13.1, creatinine 3.2. lactic 2.8 and then down to 1.1. Chest x-ray was negative. CT with moderate fluid throughout the small bowel and colon without focal obstruction, suspicious for enterocolitis. Nonobstructing right nephrolithiasis. Small hiatal hernia and left inguinal hernias. He was hypotensive with blood pressures 62/42, central line was placed and admitted to ICU, briefly on levophed. Now he is doing much better and moved to floor with normal BP, less diarrhea and he is eating. He is feeling like going home. He was started empirically on abx, stool samples pending. Never had a colonoscopy. I also talked to his daughter by phone. He also was found to have incidental mass in kidney and urology on board. Review of Systems Constitutional: Constitutional: Denies chills and Reports fatigue Eyes: Eyes: Reports no additional eye complaints ENT: Reports system reviewed and no additional complaints, except as documented Cardiovascular: Cardiovascular: Denies chest pain Respiratory: Respiratory: Denies dyspnea Gastrointestinal: Gastrointestinal: Reports diarrhea Genitourinary: Genitourinary: Denies dysuria Musculoskeletal: Musculoskeletal: Denies back pain Integumentary/Breasts: Skin/Breast: Denies dry skin Neurologic: Comments: syncope Psychiatric: Psychiatric: Denies anxiety [facility] Past Medical History Medical History CVA (cerebral vascular accident) Right side residual with ambulatory difficulty HTN (hypertension) Hyperlipidemia Surgical History Surgical History History of bunionectomy History of inguinal hernia repair Social History Social History Social History: He lives with his who is the durable power litigation attorney associate for healthcare. 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 No alcohol use. Patient stated that he smoked as a teenager till he was 22. The patient does not use any marijuana or illicit drugs. He has 2 children. The patient is a full code. Smoking status: Never smoker Second hand tobacco smoke exposure: No Substance use: never Substance
== END 2020-07-05 17:36 | disposition home or self-care (01) | DRG 720 ==
LOC: ANHED 15:30 → ANHICU 18:49 → ANH2MED 07-05 11:38 → ANHICU 07-10 12:31
PROVIDERS: Internal Medicine; Nurse Practitioner; Admitting Provider Internal Medicine; Emergency Provider Emergency Medicine; PCP Family Medicine Adolescent Medicine; Visit Provider Internal Medicine
DX: A41.9 Sepsis, unspecified organism (principal); K52.9 Noninfective gastroenteritis and colitis, unspecified; R65.21 Severe sepsis with septic shock; N17.9 Acute kidney failure, unspecified; N20.0 Calculus of kidney; N28.89 Other specified disorders of kidney and ureter; E86.0 Dehydration; I10 Essential (primary) hypertension; E78.5 Hyperlipidemia, unspecified; I69.331 Monoplegia of upper limb following cerebral infarction affecting right dominant side; I69.398 Other sequelae of cerebral infarction; R26.2 Difficulty in walking, not elsewhere classified; Z79.82 Long term (current) use of aspirin; Z79.899 Other long term (current) drug therapy
CPT/HCPCS: 36415; 36556; 51701; 70450; 71045; 74018; 74176; 74178; 76775; 80048; 80053; 81001; 82274; 82550; 82728; 82948; 83605; 83690; 83735; 84100; 84443; 84484; 85025; 85610; 85730; 86140; 87015; 87040; 87045; 87046; 87269; 87272; 87427; 89055; 93005; 96361; 96365; 96375; 99291; A9270; C1751; J0131; J2543; J3475; J3480; J7030; J7050; Q9967

== ENCOUNTER 2020-08-17 11:45 | Outpatient (CLI) | payer SELFPAY ==
--- NOTE | 2020-08-17 12:59 | ECG_ITS ---
Measurements Intervals Seth Rate: 47 P: 53 IA: 198 QRS: -8 QRSD: 89 T: -2 QT: 422 QTc: 375 Interpretive Statements SINUS BRADYCARDIA VOLTAGE CRITERIA FOR LVH BORDERLINE T WAVE ABNORMALITY- INFERIOR LEADS ABNORMAL ECG Electronically Signed On 08-17-2020 13:28:21 CDT by Martín Singh D.O.
== END 2020-08-17 11:46 | disposition home or self-care (01) ==
LOC: ANHSURGERY 11:46
PROVIDERS: PCP Family Medicine Adolescent Medicine; Visit Provider Urology
DX: N28.89 Other specified disorders of kidney and ureter (principal); I10 Essential (primary) hypertension; Z01.818 Encounter for other preprocedural examination
CPT/HCPCS: 36415; 86850; 86900; 86901; 87086; 93005

== ENCOUNTER → 2020-08-21 00:40 | Outpatient (CLI) | payer OTHER, SELFPAY ==
[2020-08-21 20:24] LABS: SARS-CoV-2 RNA PCR Negative
== END ==
PROVIDERS: PCP Family Medicine Adolescent Medicine; Visit Provider Urology
DX: Z01.812 Encounter for preprocedural laboratory examination (principal); Z20.822 Contact with and (suspected) exposure to COVID-19
CPT/HCPCS: C9803; U0003; U0005

== ENCOUNTER 2020-08-24 11:58 | Inpatient (IN) | payer SELFPAY ==
[2020-08-17 11:55] VITALS: BMI 29.9
[2020-08-17 13:00] VITALS: BP 129/78; PULSE 54; RESP 16; TEMP 36.7; O2SAT 97
--- NOTE | 2020-08-23 13:41 | P.PNAN_ITS ---
Anes - Initial Pre Proc Eval Procedure: Operation Date: 08/24/20 08:00 Proposed Procedures p Hand-Assisted Laparoscopic Left Nephrectomy - Sebastian Joseph MD Date/Time: 08/23/20 13:41 Surgeon: Sebastian Joseph MD Pre Op Diagnosis: Left Renal Mass Patient Data Age: 65 Gender: M Height: 6 ft Weight: 100.4 kg Last Vital Signs Temp 98.0 F 08/17/20 13:00 Pulse 54 L 08/17/20 13:00 Resp 16 08/17/20 13:00 BP 129/78 08/17/20 13:00 Pulse Ox 97 08/17/20 13:00 Allergies Allergy/AdvReac Type Severity Reaction Status Date / Time hydrochlorothiazide Allergy Unknown SEVERE Verified 08/24/20 06:51 Dizziness Home Medications Medication Instructions Recorded Confirmed Type aspirin 162.5 mg PO DAILY 07/03/20 08/24/20 History atorvastatin 20 mg PO QPM 07/03/20 08/24/20 History lisinopril 20 mg PO BID 07/03/20 08/24/20 History calcium carbonate [Tums] 400 mg PO PRN PRN 08/17/20 08/17/20 History cetirizine [Allergy Relief 10 mg PO QPM PRN 08/17/20 08/24/20 History (cetirizine)] metoprolol tartrate 50 mg PO BID 08/17/20 08/24/20 History Patient hx anesthesia problems: none Family hx anesthesia problems: none PMFSH Past Medical History Medical History (Updated 08/23/20 @ 13:40 by Pankaj Rider MD) CVA (cerebral vascular accident) Right side residual with ambulatory difficulty Diarrhea HTN (hypertension) Hyperlipidemia Renal mass Shock Surgical History Surgical History History of bunionectomy History of inguinal hernia repair Social History Social History Social History: He lives with his who is the durable power security rover for healthcare. 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 No alcohol use. Patient stated that he smoked as a teenager till he was 22. The patient does not use any marijuana or illicit drugs. He has 2 children. The patient is a full code. Smoking packs per day: 1 Smoking cigarettes per day: 20.0 Years smoked: 6 Smoking pack-years: 6.00 Smoking status: Former smoker Tobacco type: cigarettes Second hand tobacco smoke exposure: No Smoking end date: 06/02/69 Substance use: never Substance use type: does not use Living arrangements: with family Gender identity (if verbalized by the patient): Male Spiritual care concerns: No Anes - Eval Final PreProcedure Day of Procedure 08/23/20 13:41 Patient weight: normal Heart: regular rate and rhythm Lungs: clear to auscultation Airway: Mallampati scale class III Neurological: alert and oriented Last oral intake: >/= 8 hours ASA classification: III Emergent: no Anesthetic plan: proceed Anesthesia type and monitoring: general ETT and standard monitoring (anterior airway; may need glidescope) Informed Consent: The patient's anesthetic plan and its attendant risks and benefits were discussed with the patient/family/POA. Questions were solicited and answers provided to the satisfaction of the patient/family/POA.
[2020-08-24] VITALS (15 sets, daily range): BP systolic 131–176; BP diastolic 77–96; PULSE 45–64; RESP 10–20; TEMP 36.2–36.8; O2SAT 96–100
[2020-08-24] MEDS: LACTATED RINGERS 1,000 ML 30 ML IV CONT ×2 (06:40→10:23)
--- NOTE | 2020-08-24 07:17 | WPDHPUPDATE1 ---
History and Physical Update Update Date/Time: 08/24/20 07:17 History and Physical has been reviewed, including an updated exam of the patient. There are NO changes in the patient's condition. Risks, benefits, and alternatives have been discussed and questions answered. Patient agrees to proceed with procedure. Proceed with hand assist laparoscopic left nephrectomy
[2020-08-24] MEDS: ceFAZolin 2 GM/D5W 50 ML 2 GM/50 ML BAG IVPB (07:59)
[2020-08-24] MEDS: BUPIVACAINE HCL 0.5% PF 30 ML VIAL INFILTRATE (08:09)
--- NOTE | 2020-08-24 10:01 | P.OP_ITS ---
Procedure Note - Detailed Date of procedure: 08/24/20 Pre-op diagnosis: Left Renal Mass Post-op diagnosis: same Procedure performed: Hand assisted laparoscopic left radical nephrectomy with sparing of left adrenal gland Description of procedure: Patient is taken the operative suite and correctly identified. Once anesthesia was obtained he was placed in the decubitus position with the left side up. The marking was visible. He was prepped and draped usual sterile fashion. Appropriate time-out was performed. Murillo catheter had been placed. All pressure points were padded. An incision was made just superior to the umbilicus. This was carried down to the rectus fascia with which is incised. The peritoneum was entered. GelPort was placed. Camera and working port were then placed in appropriate locations. White line of Toldt was taken down. Colon was reflected. The ureter and gonadal vein were immediately identified. We spared the gonadal vein. We traced this up to the renal hilar area. He had quite a bit of branching of the renal vein. We also isolated the adrenal vein going to the adrenal gland and spared the adrenal gland. We were able to isolate the hilum. The artery was located just posterior to the multiple branches of the renal vein. As such we used an Endo vascular staple to take the hilar area. We then freed the kidney laterally and superiorly. There was good hemostasis at termination procedure. We placed Tisseel over the hilar area as well over the adrenal. Surgicel was then placed over the to seal. The specimen was then brought out through the midline incision. All lap count needle count sponge counts were correct. Rectus fascia was closed using double looped PDS in a running fashion. We reapproximated subcuticular fascia using Gruen chromic. Subcuticular stitches were then plac ed. Lidocaine was used anesthetized skin incisions. Patient tolerated procedure well without any complications and is taken recovery stable condition. Anesthesia: GETA Surgeon: Sebastian Joseph MD Estimated blood loss (mL): 50 Drains: Yes (Murillo) Packing: No Pathology: yes Complications: No immediate complications Condition: stable Disposition: PACU
[2020-08-24] MEDS: fentaNYL CITRATE INJ (*CRX) 100 MCG/2 ML VIAL 25 MCG IV PUSH ×6 (10:37→11:05)
[2020-08-24] MEDS: ONDANSETRON INJ 4 MG/2 ML VIAL IV PUSH ×2 (10:48→11:15)
[2020-08-24] MEDS: HYDROmorphone HCL INJ (*CRX) 1 MG/ML SYR 0.5 MG IV PUSH ×4 (11:10→17:50)
--- NOTE | 2020-08-24 12:05 | ADMGEN ---
This patient, Christ Bolton, was admitted to Medical Room 258-. Patient/family oriented to hospital policies and general routines including ID bracelet, bed and alarms, visiting hours, pain management, procedures, bathroom and other care routines, personal items, smoking policy, room service/diet, and visiting hours. Information on how to activate the Rapid Response Team has been discussed. Patient/Family are encouraged to report perceived risks to care and to ask questions if they do not understand what they are told or what they should do.
[2020-08-24 12:21] LABS: Hematocrit 43.3 % (42.0-52.0); Hemoglobin 14.3 g/dL (14.0-18.0)
[2020-08-24 12:36] LABS: Anion Gap 3 mmol/L (8-16); Blood Urea Nitrogen 16 mg/dL (9-20); Calcium 8.7 mg/dL (8.4-10.2); Carbon Dioxide 33 mmol/L (22-30); Chloride 106 mmol/L (98-107); Estimated CRCL calculation 53 ml/min; Estimated Glomerular Filt Rate 51; Glucose 125 mg/dL (75-110); Potassium 4.8 mmol/L (3.4-5.0); Sodium 142 mmol/L (137-145)
[2020-08-24] MEDS: DEXTROSE 5%/LACTATED RINGERS 1,000 ML 150 ML IV CONT ×2 (12:38→19:27)
[2020-08-24] MEDS: lisinopriL 20 MG TABLET PO (16:03)
[2020-08-24] MEDS: METOPROLOL TARTRATE 50 MG TAB PO (16:03)
[2020-08-24] MEDS: DOCUSATE SODIUM 100 MG CAPSULE PO (16:03)
[2020-08-24] MEDS: ATORVASTATIN 20 MG TABLET PO (17:55)
[2020-08-24] MEDS: FAMOTIDINE 20 MG/2 ML VIAL IV PUSH (20:07)
[2020-08-25] MEDS: HYDROmorphone HCL INJ (*CRX) 1 MG/ML SYR 0.5 MG IV PUSH ×2 (00:04→03:59)
[2020-08-25 01:43] VITALS: BP 129/75; PULSE 55; RESP 20; TEMP 36.3; O2SAT 98
[2020-08-25] MEDS: DEXTROSE 5%/LACTATED RINGERS 1,000 ML 150 ML IV CONT ×2 (02:32→09:42)
[2020-08-25 05:48] LABS: Basophils Percent Auto 0.3 % (0.2-1.2); Eosinophils Percent Auto 0.2 % (0-4.4); Hematocrit 36.8 % (42.0-52.0); Hemoglobin 12.4 g/dL (14.0-18.0); Immature Granulocyte Absolute 0.04 K/mm3 (0.00-0.031); Immature Granulocyte Percent A 0.4 % (0-0.5); Lymphocytes Absolute Auto 1.04 K/mm3 (0.9-3.2); Lymphocytes Percent Auto 9.6 % (18.3-44.2); Mean Corpuscular HGB Conc 33.7 g/dl (32-36); Mean Corpuscular Volume 88.9 fl (80-100); Mean Platelet Volume 9.7 fl (7.4-10.4); Monocytes Absolute Auto 0.9 K/mm3 (0.1-0.6); Monocytes Percent Auto 8.5 % (2.6-8.5); Neutrophils Absolute Auto 8.7 K/mm3 (1.3-6.7); Platelet Count Result 267 k/mm3 (150-375); Red Blood Count 4.14 M/mm3 (4.6-6.20); Red Cell Distribution Width 12.2 % (11.5-14.5); White Blood Count 10.8 K/mm3 (4.5-10.0)
[2020-08-25 06:08] LABS: Anion Gap 3 mmol/L (8-16); Blood Urea Nitrogen 16 mg/dL (9-20); Calcium 8.5 mg/dL (8.4-10.2); Carbon Dioxide 31 mmol/L (22-30); Chloride 103 mmol/L (98-107); Estimated CRCL calculation 44 ml/min; Estimated Glomerular Filt Rate 41; Glucose 141 mg/dL (75-110); Potassium 4.2 mmol/L (3.4-5.0); Sodium 137 mmol/L (137-145)
[2020-08-25] MEDS: HYDROcodone/acetaminophen (*CRX) 5-325 MG TABLET 2 TAB PO (06:47)
--- NOTE | 2020-08-25 07:24 | WPDANESPN ---
Anes - Prog Note Post-Op Date/Time: 08/25/20 07:24 Cardiovascular status: normal Respiratory status: normal Airway patency: baseline Mental status: baseline Post-Op hydration status: normal Vital Signs: Last Vital Signs Temp 36.3 C L 08/25/20 01:43 Pulse 55 L 08/25/20 01:43 Resp 20 08/25/20 01:43 BP 129/75 08/25/20 01:43 Pulse Ox 98 08/25/20 01:43 Pain Score (VAS): 2 I/O: Intake & Output 08/24/20 08/24/20 08/25/20 15:59 23:59 07:59 Intake Total 550 1530 1050 Output Total 50 225 Balance 500 1305 1050 Laboratory Tests 08/25/20 05:35 08/25/20 05:35 08/24/20 08/24/20 08/25/20 12:15 12:15 05:35 WBC 10.8 H RBC 4.14 L Hgb 14.3 12.4 L Hct 43.3 36.8 L MCV 88.9 MCH 30.0 MCHC 33.7 RDW 12.2 Plt Count 267 MPV 9.7 Immature Gran % (Auto) 0.4 Neut % (Auto) 81.0 H Lymph % (Auto) 9.6 L [place] % (Auto) 8.5 Eos % (Auto) 0.2 Baso % (Auto) 0.3 Lymph # (Auto) 1.04 [place] # (Auto) 0.9 H Eos # (Auto) 0.0 Baso # (Auto) 0.0 Abs Immat Gran (auto) 0.04 H Absolute Neuts (auto) 8.7 H Absolute Nucleated RBC 0.0 Nucleated RBC % 0.0 Sodium 142 Potassium 4.8 Chloride 106 Carbon Dioxide 33 H Anion Gap 3 L BUN 16 D Creatinine 1.40 H Estim Creat Clear Calc 53 Estimated GFR 51 L Glucose 125 H Calcium 8.7 08/25/20 05:35 WBC RBC Hgb Hct MCV MCH MCHC RDW Plt Count MPV Immature Gran % (Auto) Neut % (Auto) Lymph % (Auto) [place] % (Auto) Eos % (Auto) Baso % (Auto) Lymph # (Auto) [place] # (Auto) Eos # (Auto) Baso # (Auto) Abs Immat Gran (auto) Absolute Neuts (auto) Absolute Nucleated RBC Nucleated RBC % Sodium 137 Potassium 4.2 Chloride 103 Carbon Dioxide 31 H Anion Gap 3 L BUN 16 Creatinine 1.70 H Estim Creat Clear Calc 44 Estimated GFR 41 L Glucose 141 H Calcium 8.5 Post-procedural complaints: none Patient Feedback: Patient satisfied with anesthetic care.
[2020-08-25 07:44] VITALS: BP 136/80; PULSE 54; RESP 16; TEMP 36.5; O2SAT 96
[2020-08-25] MEDS: METOPROLOL TARTRATE 50 MG TAB PO (08:32)
[2020-08-25] MEDS: lisinopriL 20 MG TABLET PO (08:32)
[2020-08-25] MEDS: DOCUSATE SODIUM 100 MG CAPSULE PO (08:32)
[2020-08-25] MEDS: FAMOTIDINE 20 MG/2 ML VIAL IV PUSH (08:32)
[2020-08-25 10:00] VITALS: BP 135/87; PULSE 48; RESP 18; TEMP 37.1; O2SAT 97
[2020-08-25] MEDS: CEPHALEXIN 500 MG CAPSULE PO (11:22)
[2020-08-25] MEDS: HYDROcodone/acetaminophen (*CRX) 5-325 MG TABLET 1 TAB PO (12:20)
[2020-08-25 14:34] VITALS: BP 142/92; PULSE 60; RESP 16; TEMP 36.4; O2SAT 97
--- NOTE | 2020-08-25 15:02 | PC.NURSE ---
On 08/25/20, the student, [ Desirae Degroot], provided care and completed [facility] documentation on this patient. I have reviewed the student's documentation and agree with the findings.
--- NOTE | 2020-08-25 15:32 | WPDUROPN2 ---
Progress Note: A&P Assessment and Plan (1) Renal mass: Code(s): N28.89 - Other specified disorders of kidney and ureter Status: Acute Assessment and Plan: Ok to discharge home today. Murillo was removed and he is urinating well. Subjective Subjective Date/Time Seen: 08/25/20 15:32 POD #1 Hand Assisted Left Radical Nephrectomy with sparing of left adrenal gland. The patient is doing remarkably well today, he is sitting up in the chair, ambulating in his room. He is tolerating a regular diet and fluids well, and catheter has been removed and he is urinating well. His pain is well controlled with medication. Review of Systems Cardiovascular: Cardiovascular: Denies chest pain Respiratory: Respiratory: Reports no additional respiratory complaints Gastrointestinal: Gastrointestinal: Reports abdominal pain (at inicisons only), Denies nausea and Denies vomiting Genitourinary: Genitourinary: Denies hematuria, Denies dysuria, Denies flank pain, Denies urinary frequency and Denies urinary hesitancy Exam Resp: Effort & Inspection: normal respiratory effort Cardio: Rate: bradycardic GI: Inspection: incision (all are well approximated, no drainage or edema present) : General: Yes no CVA tenderness Urinary Catheter: Urinary Catheter: patent and draining and urine clear Extrem: General: no edema Objective Data Vital Signs Vital Signs: Vital Signs - 24 hr 08/24/20 16:03 08/24/20 17:50 08/24/20 22:00 Temperature 97.3 F L 98.1 F Pulse Rate 64 58 L 62 Respiratory Rate 16 20 Blood Pressure 135/84 132/77 Pulse Oximetry 96 99 08/25/20 01:43 08/25/20 07:44 08/25/20 10:00 Temperature 97.4 F L 97.7 F 98.7 F Pulse Rate 55 L 54 L 48 L Respiratory Rate 20 16 18 Blood Pressure 129/75 136/80 135/87 Pulse Oximetry 98 96 97 08/25/20 14:34 Temperature 97.6 F Pulse Rate 60 Respiratory Rate 16 Blood Pressure 142/92 H Pulse Oximetry 97 Intake/Output Intake/Output: Intake & Output 08/22/20 08/23/20 08/24/20 08/25/20 23:59 23:59 23:59 23:59 Intake Total 2130 3850 Output Total 275 2390 Balance 1855 1460 Meds/Results Medications: Active Medications Generic Name Dose Route Start Last Admin Trade Name Freq PRN Reason Stop Dose Admin Hydrocodone Bitart/Acetaminophen 1 tab 08/25/20 05:00 08/25/20 12:20 Hydrocodone/Acetaminophen (*Crx) 5-325 Mg Tablet PO 1 tab Q4H PRN Administration Pain Rated 1-3 Hydrocodone Bitart/Acetaminophen 2 tab 08/25/20 05:00 08/25/20 06:47 Hydrocodone/Acetaminophen (*Crx) 5-325 Mg Tablet PO 2 tab Q4H PRN Administration Pain Rated 4-6 Atorvastatin Calcium 20 mg 08/24/20 18:00 08/24/20 17:55 Atorvastatin 20 Mg Tablet PO 20 mg QPM MARCELA Administration Cephalexin HCl 500 mg 08/25/20 12:00 08/25/20 11:22 Cephalexin 500 Mg Capsule PO 500 mg Q6HR MARCELA Administration Docusate Sodium 100 mg 08/24/20 17:00 08/25/20 08:32 Docusate Sodium 100 Mg Capsule PO 100 mg BID MARCELA Administration Famotidine 20 mg 08/24/20 21:00 08/25/20 08:32 Famotidine 20 Mg/2 Ml Vial IV PUSH 08/26/20 09:01 20 mg Q12HR MARCELA Administration Hydromorphone HCl 0.5 mg 08/24/20 11:58 08/25/20 03:59 Hydromorphone Hcl Inj (*Crx) 1 Mg/Ml Syr IV PUSH 0.5 mg Q4H PRN Administration Pain Rated 7-10 Dextrose/Lactated Ringer's 1,000 mls @ 150 mls/hr 08/24/20 11:58 08/25/20 09:42 Dextrose 5%/Lactated Ringers IV CONT 150 mls/hr .Q6H40M MARCELA Administration Lisinopril 20 mg 08/24/20 17:00 08/25/20 08:32 Lisinopril 20 Mg Tablet PO 20 mg BID MARCELA Administration Metoprolol Tartrate 50 mg 08/24/20 17:00 08/25/20 08:32 Metoprolol Tartrate 50 Mg Tab PO 50 mg BID MARCELA Administration Naloxone HCl 0.1 mg 08/24/20 11:58 Naloxone Hcl 0.4 Mg/Ml Vial IV PUSH Q2M PRN Opiate Reversal Ondansetron HCl 4 mg 08/24/20 11:58 Ondansetron Inj 4 Mg/2 Ml Vial IV PUSH Q6H PRN Naus
--- NOTE | 2020-09-19 15:39 | PM.DS ---
DS: Admitting Diagnosis Admitting Diagnosis Admitting Diagnosis: Renal Mass DS: Discharge Diagnosis Discharge Diagnosis (1) Renal mass: Code(s): N28.89 - Other specified disorders of kidney and ureter Status: Acute DS: Summary Hospital Course Hospital Course: See below. Time Spent with Patient Time attestation: The patient underwent a Hand Assisted Left Radical Nephrectomy with sparing of left adrenal gland by Dr. Leah Joseph on 08/24/2020. The patient tolerated the procedure well, was transferred to recovery in stable condition and to the floor for further observation. He is sitting up in the chair, ambulating in his room. He is tolerating a regular diet and fluids well, and catheter has been removed and he is urinating well. His pain is well controlled with medication. He will be discharged home today with colace, Hydrocodone and Cephalexin. He will resume a regular diet, activity as tolerated and follow up as planned. Exam Resp: Effort & Inspection: normal respiratory effort Cardio: Rate: regular rate GI: GI Palp: Yes Soft to palpation and Yes Tenderness to palpation present (GI) (at incision sites only, no edema or redness present) : General: Yes no CVA tenderness Extrem: General: no edema DS: Data Data Completed and Pending Completed studies during hospitalization: Pending at discharge 08/24/20 08:52 Surgical [PTH] Routine Discharge Plan Discharge Attending physician on discharge: Sebastian Joseph Discharging Clinician: Patricia Guevara Anticipated Discharge Date/Time: 08/25/20 15:09 Patient Disposition: Home, Self-Care Activity: may shower, no straining and no driving Diet: as tolerated Wound Care Instructions: incision open to air Discharge Instructions: Patient to follow up in the office on 09/06/2020 at 1:00pm. Call the office if you develop a fever of >101, drainage from the incisions, gross hematuria, cloudy or malodorous urine. Patient Instructions: Antibiotic Form, Laparoscopic Radical Nephrectomy (DC), Safe Use of Anticoagulants (DC) Stand Alone Forms: General Discharge Information Follow-up/Referrals: Sebastian Joseph MD [Physician] - Discharge Medications: New cephalexin 500 mg Capsule 500 mg PO DAILY 5 Days Qty: 5 RF: 0 docusate sodium 100 mg Capsule 100 mg PO BID 10 Days Qty: 20 RF: 0 hydrocodone-acetaminophen 5-325 mg tablet 1 tablet PO Q8H PRN (Reason: pain) Qty: 20 RF: 0 Continued atorvastatin 40 mg Tablet 20 mg PO QPM RF: 0 lisinopril 40 mg Tablet 20 mg PO BID RF: 0 Hold Instructions: Resume on 07/12/20. Resume upon eval from Dr. Yoder [facility] before appointment. metoprolol tartrate 50 mg tablet 50 mg PO BID RF: 0 Allergy Relief (cetirizine) 10 mg Capsule 10 mg PO QPM PRN (Reason: Allergy Symptoms) RF: 0 calcium carbonate [Tums] 200 mg calcium (500 mg) Tablet,Chewable 400 mg PO PRN PRN (Reason: Heartburn) RF: 0 Held aspirin 325 mg Tablet 162.5 mg PO DAILY RF: 0 Hold Instructions: Resume on 07/12/20. Patient is anemic. Date of admission: 08/24/20 11:58 Primary Care Provider: Haresh Toney Admitting Provider: Sebastian Joseph Attending physician on admission: Patricia Guevara Condition: Improved
== END 2020-08-25 16:17 | disposition home or self-care (01) | DRG 442 ==
LOC: ANH2MED 12:02
PROVIDERS: Admitting Provider Urology; PCP Family Medicine Adolescent Medicine; Visit Provider Nurse Practitioner Adult Health
PROC: 0TT10ZZ Resection of Left Kidney, Open Approach (ICD-10-PCS; principal; 2020-08-24 08:00)
DX: C64.9 Malignant neoplasm of unspecified kidney, except renal pelvis (principal)
CPT/HCPCS: 36415; 80048; 85014; 85018; 85025; 88307; 88342; A9270; J0690; J1100; J1170; J2250; J2370; J2405; J2704; J2710; J3010; J7120; J7121

== ENCOUNTER 2022-08-05 08:30 | Outpatient (CLI) | payer MEDICARE, SELFPAY ==
--- NOTE | ~2022-08-05 | XR_ITS ---
EXAMINATION: XR chest 2V Exam Date/Time: 08/05/2022 8:45 REINSTATEMENT CLERK HISTORY: MALIGNANT NEOPLASM OF LEFT KIDNEY YRLY FU Comparison: 07/03/2020. RESULT: Lines, tubes, and devices: Surgical clips over the left upper abdomen. Lungs and pleura: Clear. Cardiomediastinal silhouette: Stable. Other: No acute osseous or upper abdominal finding. IMPRESSION: No acute cardiopulmonary process. Reviewed, dictated and finalized at location K. STATEMENT CLERK
--- NOTE | ~2022-08-05 | CT_ITS ---
EXAMINATION: CT abdomen pelvis wo/w con DATE: 08/05/2022 09:07 INDICATION: Malignant neoplasm of left kidney. TECHNIQUE: Computed tomography (CT) of the abdomen and pelvis was performed without and with 100 mL O mnipaque 350 intravenous contrast. Automated exposure control and iterative reconstruction technique were employed. The dose-length product was 1259.85 mGy-cm. COMPARISON: CT abdomen and pelvis 07/05/2020 FINDINGS: The visualized portions of the lung bases demonstrate mild atelectasis. No pleural effusion . The heart size is normal. No pericardial effusion. There are cysts in the liver measuring up to 1.8 cm. The gallbladder, spleen, pancreas, and right adrenal gland are normal. There is a stable 11 mm m ass in left adrenal gland measuring soft tissue attenuation, likely benign. There are cysts in right kidney measuring up to 5 mm. There are changes of left nephrectomy. There are bilateral inguinal mariana ias containing fat. The prostate is mildly enlarged. The appendix is normal. There are no pathologica lly enlarged lymph nodes. There is a supraumbilical ventral hernia containing fat. There is no free i ntraperitoneal fluid. There is severe lumbar spondylosis. Lumbar levoscoliosis is noted. IMPRESSION: 1. No evidence of metastatic disease. Reviewed, dictated and finalized at location A. WARE RELEASE MANAGER
[2022-08-05 09:02] LABS: Estimated Glomerular Filt Rate 47
== END 2022-08-05 08:31 | disposition home or self-care (01) ==
PROVIDERS: PCP Family Medicine Adolescent Medicine; Visit Provider Urology
DX: C64.2 Malignant neoplasm of left kidney, except renal pelvis (principal)
CPT/HCPCS: 71046; 74178; Q9967

== ENCOUNTER 2023-08-12 06:36 | Outpatient (CLI) | payer MEDICARE, SELFPAY ==
--- NOTE | ~2023-08-12 | XR_ITS ---
Clinical Indication: Renal cell carcinoma PA and lateral views of the chest: Comparison: 08/05/2022 Findings: The lungs are clear, without evidence of focal consolidation or pleural effusion. Cardiome diastinal silhouette is within normal limits. Bones and soft tissues are unremarkable. Impression: Normal chest. Reviewed, dictated and finalized at [facility]. Impression: Normal chest.
--- NOTE | ~2023-08-12 | CT_ITS ---
CT of the Abdomen and Pelvis: Indication: Left renal malignancy Technique: 2.5 mm axial scans were obtained through the abdomen and pelvis prior to and following in travenous administration of 100 cc of Omnipaque 350. Dose reduction technique was used on this scan b y utilizing automated exposure control and iterative reconstruction technique. The dose-length produc t (DLP) was 1300.33 mGy-cm. COMPARISON: 08/05/2022 Findings: Scans through the lung bases are unremarkable. Stable left hepatic lobe cyst noted. The spleen, pancreas, gallbladder, adrenals and right kidney are within normal limits. Patient is status post left nephrectomy. No evidence of aortic aneurysm. No l ymphadenopathy. No bowel obstruction or bowel wall thickening. There is no evidence to suggest acute appendicitis. St able small ventral fat-containing hernia. Images through the pelvis were performed. Urinary bladder unremarkable. Prostate gland mildly enlarge d. No ascites. Impression: No evidence for active malignancy or metastatic disease. Status post left nephrectomy. Reviewed, dictated and finalized at location . Impression: No evidence for active malignancy or metastatic disease. Status post left nephr ectomy.
[2023-08-12 07:15] LABS: Estimated Glomerular Filt Rate 51
== END 2023-08-12 06:37 | disposition home or self-care (01) ==
PROVIDERS: PCP Family Medicine Adolescent Medicine; Visit Provider Urology
DX: C64.2 Malignant neoplasm of left kidney, except renal pelvis (principal)
CPT/HCPCS: 71046; 74178; Q9967